=== PATIENT | male | born 1975 | race Caucasian/White ===

== ENCOUNTER 2021-02-02 07:53 | Inpatient (IN) | payer MEDICAID ==
[~2021-02-02] VITALS: Ht 172.7 cm; Wt 75.7 kg
[2021-02-02] MEDS ORDERED: INFLUENZA VIRUS VACCINE QVS 2020-21 (6MO+)/PF 60 MCG/0.5 ML SYRINGE IM ONE (17:15)
[2021-02-03 08:48] VITALS: BP 113/69
[2021-02-03] MEDS ORDERED: ALBUTEROL SULFATE HFA 90 MCG/PUFF 8 GM INHALER IH PRN (09:00)
[2021-02-03] MEDS ORDERED: ONDANSETRON HCL 4 MG TABLET PO PRN (09:00)
[2021-02-03] MEDS ORDERED: LOPERAMIDE HCL 2 MG CAPSULE PO PRN (09:00)
[2021-02-03] MEDS ORDERED: MAGNESIUM HYDROXIDE SUSPENSION 30 ML UDCUP PO PRN (09:00)
[2021-02-03] MEDS ORDERED: IBUPROFEN 400 MG TABLET PO PRN (09:00)
[2021-02-03] MEDS ORDERED: NICOTINE 14 MG/24 HOUR PATCH TD PRN (09:00)
[2021-02-03] MEDS ORDERED: MAG HYDROX/AL HYDROX/SIMETH ES 30 ML SUSPENSION UDCUP PO PRN (09:00)
[2021-02-03] MEDS ORDERED: ACETAMINOPHEN 325 MG TABLET PO PRN (09:00)
[2021-02-03] MEDS ORDERED: PETROLATUM,WHITE 28 GM JELLY TP PRN (09:00)
[2021-02-03] MEDS ORDERED: DOCUSATE SODIUM 100 MG CAPSULE PO PRN (09:00)
[2021-02-03] MEDS ORDERED: GuaiFENesin/D-METHORPHAN [SUGAR-FREE] 200-20MG/10 ML SYRUP UDCUP PO PRN (09:00)
[2021-02-03] MEDS ORDERED: CloNIDine HCL 0.1 MG TABLET PO PRN (09:00)
[2021-02-03 16:15] VITALS: BP 134/89
[2021-02-03] MEDS: OLANZapine 5 MG TABLET PO SCH (16:34)
[2021-02-04 05:27] VITALS: BP 144/83
[2021-02-04] MEDS: BuPROPion HCL XL 150 MG ER TABLET PO SCH (09:08)
[2021-02-04] MEDS: OLANZapine 5 MG TABLET PO SCH ×2 (09:08→16:17)
[2021-02-04 09:21] VITALS: BP 133/85
[2021-02-04 16:14] VITALS: BP 131/81
[2021-02-04] MEDS: HALOPERIDOL 5 MG TABLET PO PRN (23:22)
[2021-02-04] MEDS: LORazepam 2 MG TABLET PO PRN (23:22)
[2021-02-05 05:44] VITALS: BP 148/93
[2021-02-05] MEDS: OLANZapine 5 MG TABLET PO SCH ×2 (08:03→16:37)
[2021-02-05] MEDS: BuPROPion HCL XL 150 MG ER TABLET PO SCH (08:03)
[2021-02-05] MEDS ORDERED: FLUTICASONE PROPIONATE 50 MCG/SPRAY 16 GM NASAL SPRAY NASAL SCH (10:15)
[2021-02-05 16:14] VITALS: BP 129/86
[2021-02-06 00:08] VITALS: BP 150/93
[2021-02-06 08:06] VITALS: BP 124/82
[2021-02-06] MEDS: OLANZapine 5 MG TABLET PO SCH ×2 (08:36→16:31)
[2021-02-06] MEDS: BuPROPion HCL XL 150 MG ER TABLET PO SCH (08:36)
[2021-02-06 16:13] VITALS: BP 126/82
[2021-02-07 00:11] VITALS: BP 142/97
[2021-02-07 08:31] VITALS: BP 132/82
[2021-02-07] MEDS: LORazepam 2 MG TABLET PO PRN (09:07)
[2021-02-07] MEDS: BuPROPion HCL XL 150 MG ER TABLET PO SCH (09:07)
[2021-02-07] MEDS: OLANZapine 5 MG TABLET PO SCH ×2 (09:07→17:14)
[2021-02-07 16:21] VITALS: BP 134/82
[2021-02-07] MEDS: ZOLPIDEM TARTRATE 10 MG TABLET PO PRN (21:32)
[2021-02-08 03:32] VITALS: BP 121/78
[2021-02-08] MEDS: BuPROPion HCL XL 150 MG ER TABLET PO SCH (09:00)
[2021-02-08] MEDS: OLANZapine 5 MG TABLET PO SCH ×2 (09:00→16:47)
[2021-02-08 09:06] VITALS: BP 146/88
[2021-02-08 16:28] VITALS: BP 126/80
[2021-02-08] MEDS: ZOLPIDEM TARTRATE 10 MG TABLET PO PRN (20:35)
[2021-02-09 06:12] VITALS: BP 128/83
[2021-02-09 08:38] VITALS: BP 135/84
[2021-02-09] MEDS: BuPROPion HCL XL 150 MG ER TABLET PO SCH (09:52)
[2021-02-09] MEDS: OLANZapine 5 MG TABLET PO SCH ×2 (09:52→18:16)
[2021-02-09 16:52] VITALS: BP 131/90
[2021-02-09] MEDS: ZOLPIDEM TARTRATE 10 MG TABLET PO PRN (21:32)
[2021-02-10 05:56] VITALS: BP 129/79
[2021-02-10] MEDS: OLANZapine 5 MG TABLET PO SCH ×2 (08:14→17:40)
[2021-02-10] MEDS: BuPROPion HCL XL 150 MG ER TABLET PO SCH (08:14)
[2021-02-10 08:39] VITALS: BP 138/84
[2021-02-10 16:21] VITALS: BP 139/82
[2021-02-11 05:27] VITALS: BP 134/81
[2021-02-11 08:12] VITALS: BP 130/89
[2021-02-11] MEDS: BuPROPion HCL XL 150 MG ER TABLET PO SCH (09:43)
[2021-02-11] MEDS: OLANZapine 5 MG TABLET PO SCH ×2 (09:43→16:39)
[2021-02-11 16:12] VITALS: BP 140/80
[2021-02-11] MEDS: ZOLPIDEM TARTRATE 10 MG TABLET PO PRN (21:05)
[2021-02-12 01:03] VITALS: BP 128/68
[2021-02-12] MEDS: BuPROPion HCL XL 150 MG ER TABLET PO SCH (08:40)
[2021-02-12] MEDS: OLANZapine 5 MG TABLET PO SCH ×2 (08:40→17:07)
[2021-02-12 08:46] VITALS: BP 139/85
[2021-02-12 16:17] VITALS: BP 133/81
[2021-02-12] MEDS: ZOLPIDEM TARTRATE 10 MG TABLET PO PRN (19:45)
[2021-02-13 00:51] VITALS: BP 157/100
[2021-02-13 08:23] VITALS: BP 130/74
[2021-02-13] MEDS: OLANZapine 5 MG TABLET PO SCH ×2 (08:53→16:25)
[2021-02-13] MEDS: BuPROPion HCL XL 150 MG ER TABLET PO SCH (08:53)
[2021-02-13] MEDS: HALOPERIDOL 5 MG TABLET PO PRN (09:29)
[2021-02-13] MEDS: LORazepam 2 MG TABLET PO PRN (09:29)
[2021-02-13 17:24] VITALS: BP 124/70
[2021-02-14 03:48] VITALS: BP 121/72
[2021-02-14 08:38] VITALS: BP 132/84
[2021-02-14] MEDS ORDERED: BuPROPion HCL XL 150 MG ER TABLET PO ONE ×2 (10:30)
[2021-02-14] MEDS: OLANZapine 5 MG TABLET PO SCH ×2 (10:44→16:37)
[2021-02-14 16:13] VITALS: BP 135/97
[2021-02-15] MEDS: OLANZapine 5 MG TABLET PO SCH ×2 (08:41→16:06)
[2021-02-15] MEDS: BuPROPion HCL XL 150 MG ER TABLET PO SCH (08:41)
[2021-02-15] MEDS: HALOPERIDOL 5 MG TABLET PO PRN (08:41)
[2021-02-15 09:21] VITALS: BP 153/89
[2021-02-15 17:03] VITALS: BP 136/79
[2021-02-16] MEDS: LORazepam 2 MG TABLET PO PRN (00:01)
[2021-02-16] MEDS: ZOLPIDEM TARTRATE 10 MG TABLET PO PRN (00:01)
[2021-02-16 00:09] VITALS: BP 138/94
[2021-02-16 08:32] VITALS: BP 128/81
[2021-02-16] MEDS: BuPROPion HCL XL 150 MG ER TABLET PO SCH (08:44)
[2021-02-16] MEDS: OLANZapine 5 MG TABLET PO SCH (08:44)
[2021-02-16] MEDS ORDERED: OLANZapine 10 MG TABLET PO SCH (09:00)
[2021-02-16] MEDS: OLANZapine 10 MG TABLET PO SCH (16:56)
[2021-02-16 17:02] VITALS: BP 130/80
[2021-02-17 04:49] VITALS: BP 132/81
[2021-02-17 08:12] VITALS: BP 126/83
[2021-02-17] MEDS: BuPROPion HCL XL 150 MG ER TABLET PO SCH (09:22)
[2021-02-17] MEDS: OLANZapine 10 MG TABLET PO SCH ×2 (09:23→16:12)
[2021-02-17 16:35] VITALS: BP 126/90
[2021-02-18 06:29] VITALS: BP 122/79
[2021-02-18] MEDS: HALOPERIDOL 5 MG TABLET PO PRN (08:37)
[2021-02-18] MEDS: LORazepam 2 MG TABLET PO PRN (08:37)
[2021-02-18] MEDS: OLANZapine 10 MG TABLET PO SCH ×2 (08:38→16:30)
[2021-02-18] MEDS: BuPROPion HCL XL 150 MG ER TABLET PO SCH (08:38)
[2021-02-18 10:51] VITALS: BP 128/88
[2021-02-18 16:49] VITALS: BP 134/90
[2021-02-18] MEDS: ZOLPIDEM TARTRATE 10 MG TABLET PO PRN (20:52)
[2021-02-19 05:06] VITALS: BP 126/85
[2021-02-19] MEDS: BuPROPion HCL XL 150 MG ER TABLET PO SCH (08:23)
[2021-02-19] MEDS: OLANZapine 10 MG TABLET PO SCH ×2 (08:23→17:07)
[2021-02-19 08:33] VITALS: BP 133/90
[2021-02-19 16:07] VITALS: BP 133/97
[2021-02-19] MEDS: LORazepam 2 MG TABLET PO PRN (17:06)
[2021-02-20 04:10] VITALS: BP 126/83
[2021-02-20 08:52] VITALS: BP 137/91
[2021-02-20] MEDS: LORazepam 2 MG TABLET PO PRN (09:10)
[2021-02-20] MEDS: OLANZapine 10 MG TABLET PO SCH ×2 (09:10→16:25)
[2021-02-20] MEDS: BuPROPion HCL XL 150 MG ER TABLET PO SCH (09:10)
[2021-02-20 16:13] VITALS: BP 130/80
[2021-02-21 05:01] VITALS: BP 127/79
[2021-02-21 08:18] VITALS: BP 126/87
[2021-02-21] MEDS: BuPROPion HCL XL 150 MG ER TABLET PO SCH (08:46)
[2021-02-21] MEDS: OLANZapine 10 MG TABLET PO SCH ×2 (08:46→16:28)
[2021-02-21 16:33] VITALS: BP 134/94
[2021-02-21] MEDS: LORazepam 2 MG TABLET PO PRN (17:03)
[2021-02-22 00:35] VITALS: BP 135/90
[2021-02-22 08:28] VITALS: BP 131/84
[2021-02-22] MEDS: OLANZapine 10 MG TABLET PO SCH ×2 (08:39→16:31)
[2021-02-22] MEDS: LORazepam 2 MG TABLET PO PRN ×2 (08:39→17:28)
[2021-02-22] MEDS: BuPROPion HCL XL 150 MG ER TABLET PO SCH (08:39)
[2021-02-22 16:28] VITALS: BP 142/85
[2021-02-23 03:25] VITALS: BP 128/74
[2021-02-23] MEDS: BuPROPion HCL XL 150 MG ER TABLET PO SCH (08:32)
[2021-02-23] MEDS: OLANZapine 10 MG TABLET PO SCH (08:32)
[2021-02-23 09:40] VITALS: BP 129/81
[2021-02-23] MEDS ORDERED: BUPR-93 PO (12:00)
[2021-02-23] MEDS ORDERED: OLAN10TA3 PO (12:00)
== END 2021-02-23 14:35 | disposition home or self-care (01) | DRG 751 ==
LOC: B3A 13:28
PROVIDERS: ADMIT Psychiatry & Neurology Psychiatry; ATTEND Psychiatry & Neurology Psychiatry
DX: F33.2 Major depressive disorder, recurrent severe without psychotic features (principal); R45.851 Suicidal ideations; Z59.0 Homelessness; I10 Essential (primary) hypertension; F17.210 Nicotine dependence, cigarettes, uncomplicated; R10.13 Epigastric pain; F41.9 Anxiety disorder, unspecified; J30.9 Allergic rhinitis, unspecified; Z28.21 Immunization not carried out because of patient refusal
CPT/HCPCS: 90686; G0008; Z7610